=== PATIENT | male | born 1990 | race Two or more races ===

== ENCOUNTER → 2017-05-10 | Emergency (ER) | payer OTHER ==
[~2017-05-10] VITALS: Ht 170.2 cm; Wt 108.9 kg
[~2017-05-10] MED LIST: ALBUTEROL2.5 MG/3 M IH; HYDROCHLOROTHIA25 MG; PROVENTIL HFA6.7 GM IH; PROVENTIL3 ML/2.5 M IH; SINGULAIR10 MG PO; SYMBICORT 16010.2 GM IH; ZITHROMAX500 MG PO; ZYNCOF 20-400120 ML PO
== END | disposition home or self-care (01) ==
LOC: ER 01:18
DX: J45.998 Other asthma (principal)

== ENCOUNTER 2018-03-29 16:16 | Emergency (ER) | payer OTHER ==
[~2018-03-29] VITALS: Ht 170.2 cm; Wt 113.4 kg
== END 2018-03-29 17:22 | disposition home or self-care (01) ==
LOC: ER 16:16
DX: J45.998 Other asthma (principal)

== ENCOUNTER 2018-06-29 20:53 | Emergency (ER) | payer OTHER ==
[~2018-06-29] VITALS: Ht 170.2 cm; Wt 122.0 kg
== END 2018-06-29 21:33 | disposition home or self-care (01) ==
LOC: ER 20:53
DX: R06.02 Shortness of breath (principal)

== ENCOUNTER 2019-10-08 07:32 | Emergency (ER) | payer OTHER ==
[~2019-10-08] VITALS: Ht 170.2 cm; Wt 111.1 kg
== END 2019-10-08 10:05 | disposition home or self-care (01) ==
LOC: ER 07:32
DX: S61.212A Laceration without foreign body of right middle finger without damage to nail, initial encounter (principal); W26.8XXA Contact with other sharp object(s), not elsewhere classified, initial encounter; Y93.89 Activity, other specified; Y92.69 Other specified industrial and construction area as the place of occurrence of the external cause; Y99.8 Other external cause status

== ENCOUNTER 2020-11-28 04:55 | Emergency (ER) | payer OTHER ==
[~2020-11-28] VITALS: Ht 170.2 cm; Wt 113.4 kg
== END 2020-11-28 11:27 | disposition home or self-care (01) ==
LOC: ER 04:55
DX: L03.116 Cellulitis of left lower limb (principal)